=== PATIENT | female | born 1970 | race American Indian/Alaskan Native ===

== ENCOUNTER 2018-04-15 14:02 | Emergency (ER) | payer SELFPAY ==
[2018-04-15] MEDS ORDERED: BENADRYL ONE (14:18)
[2018-04-15] MEDS ORDERED: HALDOL ONE ×2 (14:18→14:20)
[2018-04-15] MEDS ORDERED: ATIVAN ONE (14:19)
[2018-04-15] MEDS ORDERED: HALDOL IM ONE (14:41)
[2018-04-15] MEDS ORDERED: ATIVAN IM ONE (14:42)
[2018-04-15] MEDS ORDERED: BENADRYL IM ONE (14:43)
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
[2018-04-15 15:17] LABS: Hematocrit 42.8 % (30.3-42.9); Hemoglobin 14.2 gm/dl (10.1-14.3); Mean Corpuscular HGB Conc 33 % (30-34); Mean Corpuscular Volume 78 fl (79-97); Platelet Count 429 K/mm3 (140-440); Red Blood Count 5.48 M/mm3 (3.65-5.03); Red Cell Distribution Width 16.5 % (13.2-15.2)
[2018-04-15 15:35] LABS: BUN/Creatinine Ratio 11; Blood Urea Nitrogen 9 mg/dL (7-17); Hemolysis Index 17
--- NOTE | 2018-04-15 20:24 | Cat Scan Report ---
PROCEDURE: CT HEAD/BRAIN WO CON TECHNIQUE: Computerized tomography of the head was performed without contrast material. HISTORY: od ams COMPARISONS: None . FINDINGS: No CT evidence of intracranial mass, hemorrhage, acute territorial infarction, or hydrocephalus. The intracranial arteries are symmetric in density. Calvarium is intact. The visualized paranasal sinuses and mastoids are aerated. IMPRESSION: No CT evidence of acute intracranial abnormality . This document is electronically signed by Teresa Martinez MD., April 15 2018 03:47:33 PM ET
[2018-04-15] MEDS ORDERED: HALDOL IM PRN (20:29)
--- NOTE | 2018-04-15 20:44 | Cat Scan Report ---
PROCEDURE: CT CERVICAL SPINE WO CON TECHNIQUE: Computerized tomography of the cervical spine was performed from the skull base to T1 wit hout contrast material. HISTORY: od ams COMPARISONS: None . FINDINGS: The vertebral body heights and alignment are maintained. No acute fracture or subluxation is seen. Di sc spaces are preserved. IMPRESSION: No acute fracture or subluxation is identified. . This document is electronically signed by Teresa Martinez MD., April 15 2018 04:00:46 PM ET
--- NOTE | 2018-04-15 22:45 | XRay Report ---
PROCEDURE: XR CHEST 1V AP TECHNIQUE: Chest radiograph single view. HISTORY: od ams COMPARISONS: None . FINDINGS: Heart: Normal. Mediastinum/Vessels: Normal. Lungs/Pleural space: Normal. Bony thorax: No acute osseous abnormality. Life support devices: None. IMPRESSION: No acute cardiopulmonary abnormality. This document is electronically signed by Elena Mata MD., April 15 2018 05:28:48 PM ET
[2018-04-16] MEDS: ATIVAN IM PRN (15:00)
[2018-04-16] MEDS ORDERED: HCTZ PO ONE (22:17)
[2018-04-16] MEDS ORDERED: ZESTRIL PO ONE (22:17)
[2018-04-16 23:48] LABS: HCG Qualitative,Urine Negative (Negative)
[2018-04-16 23:49] LABS: Bilirubin,Urine NEG (Negative); Blood,Urine NEG (Negative); Color,Urine Yellow (Yellow); Mucus,Urine FEW /HPF; Protein,Urine <15 mg/dL mg/dL (Negative); Urobilinogen,Urine < 2.0 mg/dL (<2.0); WBC,Urine < 1.0 /HPF (0.0-6.0)
[2018-04-16 23:53] LABS: Amphetamine Screen,Urine PRESUMPTIVE NEGATIVE; Benzodiazepines Screen,Urine PRESUMPTIVE NEGATIVE; Cannabinoid Screen,Urine PRESUMPTIVE NEGATIVE; Methadone Screen,Urine PRESUMPTIVE NEGATIVE; Opiate Screen,Urine PRESUMPTIVE NEGATIVE
[2018-04-17 00:12] LABS: Cocaine Screen,Urine PRESUMPTIVE POSITIVE
[2018-04-17] MEDS: ATIVAN IM PRN (00:56)
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
[2018-04-17] MEDS ORDERED: ELAVIL PO SCH (22:00)
--- NOTE | 2018-04-18 09:07 | Progress Note ---
Subjective - Reason for Consult Consult date: 04/18/18 Reason for consult: Psychiatry Follow-up - Chief Complaint Chief complaint: 'I feel much better" 47 y.o. AA female who presented to the ER for bizarre behavior. Today the patient is calm and cooperative during the assessment. Per collateral information from the patient's daughter Alyssa James at [phone], she denies any previous suicide attempts by the patient. She stated that her mother's nehavior stem from using substances prior to coming to the ER. She stated that she feel like her mother is safe to be discharged. The patient denies SI/HI's and AVH's. She denies any side effects of her medications. Mental Status Exam - Vital signs Last Vital Signs Temp 98.5 F 04/18/18 02:00 Pulse 102 H 04/18/18 02:00 Resp 18 04/18/18 02:00 BP 121/73 04/18/18 02:00 Pulse Ox 98 04/18/18 02:00 - Exam Narrative exam: MSE: Appearance: calm, cooperative Behavior: regular eye contact Speech: regular rate and tone Mood: "better" Affect: congruent to mood Thought Process: linear Thought Content: denies SI/HI's and AVH's Motor Activity: sitting up in the bed Cognition: A/O x 3 Insight: appropriate Judgment:appropriate Assessment and Plan Impression: Hx of Depression. Today the patient is calm and cooperative during the assessment. The patient was positive for cocaine and intoxicated on arrival to the ER. The patient is no threat to self. DDx: Substance Induced Mood DO Recommendation/Plan: Rescind 1013. The patient do not need a prescription, she has Elavil at home. Discussed the importance to abstain from recreational drug use and alcohol consumption (etoh). Dispo: The patient can follow up with her psychiatrist Dr Morales for outpatient psy services. Staffed with Dr Anoop Madison.
[2018-04-18 09:30] VITALS: BP 151/103
--- NOTE | 2018-04-18 09:41 | Emergency Department Report ---
Blank Doc - Documentation Documentation: Chart was presented to me to rescinded 1013. Health notes reviewed and initial suicidal behavior felt to be due to acute intoxication of alcohol and drugs. Patient has remained calm and cooperative without SI in the ED since sobering up. 1013 will be rescinded and patient will be discharged as per recommendation of psychiatry.
== END 2018-04-18 10:25 ==
LOC: ED 14:02 → EEVIPCON 14:02 → ED 04-18 10:25
DX: F10.120 Alcohol abuse with intoxication, uncomplicated (principal); F23 Brief psychotic disorder; F41.9 Anxiety disorder, unspecified
CPT/HCPCS: 36415; 70450; 71045; 72125; 80048; 80307; 81001; 81025; 82550; 84702; 85027; 93005; 93010; 96372; 99285; G0480; J1200; J1630; J2060; 80320